=== PATIENT | female | born 1995 | race Caucasian/White ===

== ENCOUNTER 2018-03-31 18:20 | Emergency (ER) | payer OTHER ==
[2018-03-31 18:51] VITALS: BP 155/91
--- NOTE | 2018-03-31 19:10 | UC ---
Dental HPI - HPI Summary HPI Summary: Pt presents to with dental pain progressive x 24 horus. Pt states took Motrin - 400mg - last dose at 9am. Pt states has a dental appointment on Friday. No fever, chills. states has broken tooth causing pain. No fever, rash. Denies - on Depo medications reviewed - History of Current Complaint Chief Complaint: UCDentalProblem Stated Complaint: dental Time Seen by Provider: 03/31/18 19:08 Hx Obtained From: Patient Hx Last Menstrual Period: continuous since mirena Pain Intensity: 10 - Allergies/Home Medications Allergies/Adverse Reactions: Allergies Allergy/AdvReac Type Severity Reaction Status Date / Time Penicillins Allergy Hives Verified 03/31/18 18:47 Home Medications: Home Medications Ibuprofen [Advil] 600 mg PO Q8HR 03/31/18 [History Confirmed 03/31/18] PMH/Surg Hx/FS Hx/Imm Hx Previously Healthy: Yes - Surgical History Surgical History: None - Family History Known Family History: Positive: Non-Contributory - Social History Occupation: Student - job training Lives: With Family Alcohol Use: None Substance Use Type: None Smoking Status (MU): Never Smoked Tobacco Type: Cigarettes Amount Used/How Often: 2 CIGS Length of Time of Smoking/Using Tobacco: 1 YR Review of Systems All Other Systems Reviewed And Are Negative: Yes Skin: Positive: Negative ENT: Positive: Dental Pain Physical Exam - Summary Physical Exam Summary: Vital Signs Reviewed: Yes A+Ox3, obvious discomfort Eyes: Conjunctiva Clear, DARON, EOM intact and full ENT: Hearing grossly normal, TM x 2 clear, Pt with poor dentition, multiple broken, teeth #32 with mild edema, erythema and TTP no fluctuance. no drainage neck: supple Respiratory: Positive: No respiratory distress, No accessory muscle use Cardiovascular: skin color reflect adequate perfusion Musculoskeletal Exam: PALOMO x 4 without difficulty Neurological: Positive: Alert, ambulatory without difficulty Psychological: Positive: Normal Response To Family Skin: Positive: no rash, no ecchymosis Triage Information Reviewed: Yes Vital Signs: Initial Vital Signs Temp 98.6 F 03/31/18 18:45 Pulse 84 03/31/18 18:45 Resp 19 03/31/18 18:45 BP 155/91 03/31/18 18:45 Pulse Ox 99 03/31/18 18:45 Dental Complaint Course/Dx - Course Course Of Treatment: Pt presents with 24 hours of dental pain #32 Pt with poor dentition - multiple broken teeth, caries #32 TTP edema. No fluctance. no facial edema. pt trialed viscous lidocaine - with marked improvement of pain. reviewed motrin/apap. hydrated. swish and spit. clinda. f/u with dentist fri. BP elevated - pt in discomfort - Differential Dx/Diagnosis Provider Diagnosis: Dental abscess Discharge - Sign-Out/Discharge Documenting (check all that apply): Patient Departure All imaging exams completed and their final reports reviewed: No Studies - Discharge Plan Condition: Stable Disposition: HOME Prescriptions: Clindamycin Cap(NF) [Clindamycin Cap 300 mg Cap(NF)] 300 mg PO TID #30 cap Lidocaine 2% VISCOUS* 10 ml .SEE ORDER Q4HR #150 ml Patient Education Materials: Dental Abscess (ED) Referrals: [facility] Oscar [Primary Care Provider] - Additional Instructions: -Okay to alternate ibuprofen (Advil, Motrin) 600mg and Tylenol 1000mg every 3 hours for pain. Take with food. Do NOT take for more than 4-5 days -Swish and spit with warm salt water 3-4 times a day -Take anitbiotics as prescribed until gone - Okay to paint tooth with numbing medication every 4 hours as prescribed -Stay well hydrated - frequent sips of cold fluids will be soothing to your throat (popsicles, jello, ice cream, ice water) - Keep your dental appointment as scheduled on Friday - Billing Disposition and Condition Condition: STABLE Disposition: Home
[2018-03-31] MEDS ORDERED: Lidocaine 2% VISCOUS* 15 ML UDC PO ONE (19:22)
[2018-03-31] MEDS ORDERED: Acetaminophen TAB* 325 MG PO ONE (19:24)
== END 2018-03-31 19:51 | disposition home or self-care (01) ==
LOC: UCCORT 18:20
DX: K04.7 Periapical abscess without sinus (principal); Z88.0 Allergy status to penicillin; F17.210 Nicotine dependence, cigarettes, uncomplicated
CPT/HCPCS: 99212; A9270-GY; G0463

== ENCOUNTER 2018-12-25 13:46 | Emergency (ER) | payer OTHER ==
[2018-12-25 14:24] VITALS: BP 103/63
--- NOTE | 2018-12-27 14:26 | UC ---
Throat Pain/Nasal Tl HPI - HPI Summary HPI Summary: Patient presents to urgent care requesting a recheck. Patient states she was seen at the emergency department approximately 10 days ago. Patient states she was diagnosed with an upper respiratory tract infection. Patient states she continues to have some sinus congestion and sore throat. Patient also has a cough productive of yellow sputum. Patient is 17 weeks . No fevers or chills. No rash. No nausea vomiting. Patient is able to eat and drink. Patient she could take. Patient's medications reviewed this visit. - History of Current Complaint Chief Complaint: UCGeneralIllness Stated Complaint: COUGH Time Seen by Provider: 12/25/18 14:35 Hx Obtained From: Patient Hx Last Menstrual Period: 05/25/18 Pain Intensity: 9 Pain Scale Used: 0-10 Numeric - Allergies/Home Medications Allergies/Adverse Reactions: Allergies Allergy/AdvReac Type Severity Reaction Status Date / Time Penicillins Allergy Hives Verified 12/25/18 14:24 Home Medications: Home Medications Acetaminophen [Tylenol] 325 mg PO DAILY PRN 12/25/18 [History Confirmed 12/25/18 ] PMH/Surg Hx/FS Hx/Imm Hx Previously Healthy: Yes - Surgical History Surgical History: None - Family History Known Family History: Positive: Non-Contributory - Social History Occupation: Employed Full-time Lives: With Family Alcohol Use: None Substance Use Type: None Smoking Status (MU): Light Every Day Tobacco Smoker Type: Cigarettes Amount Used/How Often: 2 CIGS Length of Time of Smoking/Using Tobacco: 1 YR Review of Systems All Other Systems Reviewed And Are Negative: Yes Constitutional: Positive: Fatigue Skin: Positive: Negative Eyes: Positive: Negative ENT: Positive: Nasal Discharge, Sinus Congestion, Sinus Pain/Tenderness Respiratory: Positive: Cough Cardiovascular: Positive: Negative Physical Exam - Summary Physical Exam Summary: Vital Signs Reviewed: Yes A+Ox3, no distress, mild congestion Eyes: Conjunctiva Clear, DARON. EOM intact and full ENT: Hearing grossly normal TM x 2 clear, turbinates inflammed, + PND no sinus discomfort with palp mmoist, uvula midline, no exudate, no erythema Neck: Positive: Supple Respiratory: Positive: No respiratory distress, No accessory muscle use + CTA throughout no w/r, interimment cough - speaking full, easy sentece Cardiovascular: RRR nl s1, s2 no m/r CBT <2 sec abd soft + BS nt/nd no guarding, no distension Musculoskeletal Exam: PALOMO x 4 without difficulty Strength Intact, ROM Intact Neurological: Positive: Alert, + sensation throughout Psychological: Positive: Normal Response To examiner Skin: Positive: no rash, no ecchymosis Triage Information Reviewed: Yes Vital Signs: Initial Vital Signs Temp 98.3 F 12/25/18 14:18 Pulse 76 12/25/18 14:18 Resp 18 12/25/18 14:18 BP 103/63 12/25/18 14:18 Pulse Ox 97 12/25/18 14:18 Throat Pain/Nasal Course/Dx - Course Course Of Treatment: Patient presents requesting a recheck. Patient with sinus congestion postnasal drip and intermittent cough. Patient is on Zithromax. I called the pharmacy and confirm this. Patient states she continues to feel congested and did not which is a tick that she is . On exam vital signs are stable. Patient no respiratory distress. Patient does have some sinus congestion. Recommend Flonase. We'll also give patient a prescription for albuterol MDI. Continue with vitamin finish antibiotics. Secretion precaution. Return precautions. Patient comfortable in agreement with plan. - Differential Dx/Diagnosis Provider Diagnosis: Rhinosinusitis Discharge ED - Sign-Out/Discharge Documenting (check all that apply): Patient Departure All imaging exams completed and their final reports reviewed: No Studies - Discharge Plan Condition: Stable Disposition: HOME Prescriptions: Albuterol HFA INHALER* [Ventolin HFA Inhaler*] 2 puff INH Q4H PRN #1 mdi PRN Reason: wheeze Fluticasone NASAL SPRAY 50MCG* [Flonase NASAL SPRAY 50MCG*] 2 spray BOTH NARES DAILY #1 btl Patient Education Materials: Rhinosinusitis (ED) Referrals: Eugenia Crocker NP [Primary Care Provider] - Additional Instructions: - Stay well hydrated. Drink plenty of non-alcoholic, non-caffinated beverages. - Alternate ibuprofen (Advil, Motrin) 600mg and Tylenol every 3 hours for pain or fever. Take with food. Do NOT take for more than 4-5 days. - These infections are spread by secretions - do NOT share eating or drinking utensils - clean items you share with other people such as cell phones, computer mouse, TV remote, computer tablets,etc. When you complete your antibiotics, change your toothbrush and pillowcase - get plenty of restful sleep - humidify the air in the room where you sleep - boil water, run a hot steam shower, vaporizer, cups of water by heat register - use the inhaler every 4 hours as needed for cough or wheezing - use nasal spray as prescribed - stay well hydrated. Drink plenty of non-alcoholic, non-caffinated beverages - contact your doctor or return with questions or concerns - Billing Disposition and Condition Condition: STABLE Disposition: Home
== END 2018-12-25 15:26 | disposition home or self-care (01) ==
LOC: UCCORT 13:46
DX: J32.9 Chronic sinusitis, unspecified (principal); Z88.0 Allergy status to penicillin; F17.210 Nicotine dependence, cigarettes, uncomplicated
CPT/HCPCS: 99212; G0463